=== PATIENT | female | born 1960 | race Caucasian/White ===

== ENCOUNTER 2017-04-16 18:48 | Emergency (ER) | payer BC, OTHER ==
[2017-04-16 19:06] VITALS: TEMP 97.7; BMI 23.8
--- NOTE | 2017-04-16 19:09 | PDOC ---
Rapid Medical Evaluation Time Seen by Provider: 04/16/17 18:49 Medical Evaluation: 04/16/17 19:05 I have performed a brief in-person evaluation of this patient. o The patient presents with a chief complaint of: Lower abdominal pain, vomiting, diarrhea today o Pertinent physical exam findings: Generalized abdominal discomfort. Started at 12 pm today as cramping. Then vomited and several episodes of diarrhea. No rebound, no back pain, denies urinary symptoms. o I have ordered the following: UA, C&S, cbc, cmp, amylase, lipase. o The patient will proceed to the ED for further evaluation.
[2017-04-16 19:24] LABS: BASOPHIL 0.7 % (0-2.0); EOSINOPHIL 0.1 % (0-4.5); MCH 27.7 pg (25.7-33.7); MEAN CELL VOLUME 83.9 fl (80-96); MEAN PLT VOLUME 8.3 fl (7.5-11.1); NEUTROPHILS 81.2 % (42.8-82.8); PLATELET COUNT 328 K/MM3 (134-434); WHITE BLOOD COUNT 14.8 K/mm3 (4.0-10.0)
[2017-04-16 19:31] LABS: URINE APPEARANCE CLEAR; URINE BILIRUBIN NEGATIVE (NEGATIVE); URINE BLOOD NEGATIVE (NEGATIVE); URINE COLOR YELLOW; URINE GLUCOSE (UA) NEGATIVE (NEGATIVE); URINE KETONE 1+ (NEGATIVE); URINE LEUK ESTERASE NEGATIVE (NEGATIVE); URINE NITRITE NEGATIVE (NEGATIVE); URINE PROTEIN NEGATIVE (NEGATIVE); URINE UROBILINOGEN NEGATIVE E.U./dl (0.2-1.0)
[2017-04-16 19:48] LABS: AMYLASE 92 U/L (25-115); ANION GAP 10 (8-16); BILIRUBIN,TOTAL 0.5 mg/dL (0.2-1.0); CALCIUM 9.3 mg/dL (8.5-10.1); CO2 26 mmol/L (21-32); COCKROFT - GAULT 73.9585; CREATININE 0.8 mg/dL (0.55-1.02); GLUCOSE,RANDOM 123 mg/dL (74-106); SGOT/AST 25 U/L (15-37); SGPT/ALT 25 U/L (12-78); TOT PROT 7.5 g/dl (6.4-8.2)
[2017-04-16 19:49] LABS: ALK PHOS 116 U/L (45-117)
[2017-04-16] MEDS ORDERED: SODIUM CHLORIDE 1,000 ML IV STA (20:20)
[2017-04-16] MEDS ORDERED: ONDANSETRON 4 MG/2 ML VIAL IVPUSH ONE (20:20)
[2017-04-16] MEDS ORDERED: morphine CARPU-JECT 4 MG/1 ML DISP.SYRIN IVPUSH ONE (20:20)
--- NOTE | 2017-04-16 20:27 | PDOC ---
History of Present Illness - General Chief Complaint: Pain, Acute Stated Complaint: VOMITING/DIARRHEA Time Seen by Provider: 04/16/17 18:49 History Source: Patient Exam Limitations: No Limitations - History of Present Illness Travel History: No Initial Comments: 04/16/17 20:22 56yo Female patient with no significant past medical history presents to ED c/o lower abdominal pain w/ associated n/v/d x 1 bloody stool. Patient denies any anticoagulation use. Last Meal: 8am this morning. LNMP: Menopausal x 5 years. PCP- Dr. Ricks Endocrine- Dr. Parker Timing/Duration: reports: getting worse Quality: reports: moderate Abdominal Pain Onset Location: reports: RLQ, LLQ Pain Radiation: reports: no radiation Activities at Onset: reports: none Treatment Prior to Arrive: worse with: analgesics, antacids, cold pack, heat, laxative, enema, other Aggravating Factors: worse with: None, Defecation, Eating, Emotional upset, Exertion, [place], Movement, Voiding, Change in position Alleviating Factors: worse with: None, Belching, Shallow Breathing, Defecation, Eating, Holding Breath, Passing Gas, Change in Position, Rest, Voiding, Vomiting Past History - Travel Traveled outside of the country in the last 30 days: No Close contact w/someone who was outside of country & ill: No - Past Medical History Allergies/Adverse Reactions: Allergies Allergy/AdvReac Type Severity Reaction Status Date / Time No Known Allergies Allergy Verified 04/16/17 19:06 Home Medications: Ambulatory Orders Ciprofloxacin [Cipro (Restricted To Id)] 500 mg PO BID #28 tablet 04/16/17 Metronidazole [Flagyl -] 500 mg PO BID #28 tablet 04/16/17 Thyroid Disease: Yes (HYPER) - Psycho/Social/Smoking Cessation Hx Suicidal Ideation: No Smoking History: Never smoked Hx Alcohol Use: No Drug/Substance Use Hx: No Abd/GI Specific PMHX - Complaint Specific PMHX Colitis: No Diverticulitis: No Gall Bladder Disease: No GERD: No Hepatitis: No Irritable Bowel Synd (IBS): No Pancreatitis: No GI Ulcer Disease: No Review of Systems - Review of Systems Able to Perform ROS?: Yes Is the patient limited [place] proficient: No Constitutional: No: Chills, Fever Respiratory: No: Cough, Shortness of Breath, Wheezing Cardiac (ROS): No: Chest Pain, Lightheadedness, Palpitations, Syncope, Chest Tightness ABD/GI: Yes: Blood Streaked Bowels, Diarrhea, Nausea, Vomiting, Abdominal cramping. No: Constipated, Poor Appetite, Poor Fluid Intake, Rectal Bleeding : No: Dysuria, Frequency, Flank Pain, Hematuria, Pain Musculoskeletal: No: Back Pain Integumentary: No: Bruising, Erythema, Rash, Sweating Neurological: No: Headache, Seizure, Tingling, Tremors, Ataxia, Dizziness All Other Systems: Reviewed and Negative *Physical Exam - Vital Signs Last Vital Signs Temp Pulse Resp BP Pulse Ox 97.7 F 96 H 18 164/101 97 04/16/17 19:03 04/16/17 19:03 04/16/17 19:03 04/16/17 19:03 04/16/17 19:03 - Physical Exam General Appearance: Yes: Nourished, Appropriately Dressed, Mild Distress. No: Apparent Distress, Moderate Distress, Severe Distress Neck: positive: Trachea midline, Supple. negative: Normal Thyroid, Stridor, Lymphadenopathy (R), Lymphadenopathy (L) Respiratory/Chest: positive: Lungs Clear, Normal Breath Sounds. negative: Chest Tender, Respiratory Distress, Accessory Muscle Use, Labored Respiration, Rapid RR, Rhonchi, Stridor, Wheezing Cardiovascular: positive: Regular Rhythm, Regular Rate Gastrointestinal/Abdominal: positive: Tender, Soft, Increased Bowel Sounds, Guarding, Tenderness (Lower pelvis region). negative: Distended, Rebound Musculoskeletal: positive: Normal Inspection. negative: CVA Tenderness Extremity: positive: Normal Capillary Refill, Normal Inspection, Normal Range of Motion. negative: Pedal Edema, Swelling, Calf Tenderness, Erythema, Inflammation Integumentary: positive: Normal Color, Dry, Warm. negative: Moist, Hives, Rash , Swelling, Bruising Neurologic: positive: icu registered nurse II-XII NML intact, Fully Oriented, Alert, Normal Mood/ Affect, Normal Response, Motor Strength / ED Treatment Course - LABORATORY CBC & Chemistry Diagram: 04/16/17 19:15 04/16/17 19:15 - ADDITIONAL ORDERS Additional order review: Laboratory Results 04/16/17 04/16/17 19:15 19:15 Sodium 136 Potassium 4.5 Chloride 100 Carbon Dioxide 26 Anion Gap 10 BUN 12 Creatinine 0.8 Creat Clearance w eGFR > 60 Random Glucose 123 H Calcium 9.3 Total Bilirubin 0.5 AST 25 ALT 25 Alkaline Phosphatase 116 Total Protein 7.5 Albumin 4.0 Total Amylase 92 Lipase 107 Urine Color Yellow Urine Appearance Clear Urine pH 7.0 Urine Protein Negative Urine Glucose (UA) Negative Urine Ketones 1+ H Urine Blood Negative Urine Nitrite Negative Urine Bilirubin Negative Urine Urobilinogen Negative Ur Leukocyte Esterase Negative 04/16/17 19:15 RBC 5.16 MCV 83.9 MCHC 33.0 RDW 12.0 MPV 8.3 Neutrophils % 81.2 Lymphocytes % 12.1 Monocytes % 5.9 Eosinophils % 0.1 Basophils % 0.7 - RADIOLOGY Radiology Studies Ordered: Category Date Time Status ABDOMEN & PELVIS CT WITH CONTR [CT] Stat CT Scan 04/16/17 20:20 Ordered *DC/Admit/Observation/Transfer Diagnosis at time of Disposition: Colitis - Discharge Dispostion Disposition: HOME Condition at time of disposition: Improved Admit: No - Prescriptions Prescriptions: Ciprofloxacin [Cipro (Restricted To Id)] 500 mg PO BID #28 tablet Metronidazole [Flagyl -] 500 mg PO BID #28 tablet - Referrals Referrals: Tfif Ricks [Primary Care Provider] - Teresa Sherman MD [Staff Physician] - - Patient Instructions Printed Discharge Instructions: DI for Colitis Additional Instructions: FOLLOW UP WITH YOUR PRIMARY CARE PROVIDER AND DR. SHERMAN THIS WEEK FOR FURTHER EVALUATION. CALL TO SCHEDULE APPOINTMENT. TAKE MEDICATIONS PRESCRIBED. TYLENOL FOR PAIN NEEDED. RETURN IF SYMPTOMS WORSEN OR ANY CONCERNS FOR FURTHER EVALUATION. Print Language: HONDURAN - Post Discharge Activity Work/School Note: Back to Work
--- NOTE | 2017-04-16 20:32 | PDOC ---
*Physical Exam - Vital Signs Last Vital Signs Temp Pulse Resp BP Pulse Ox 97.7 F 96 H 18 164/101 97 04/16/17 19:03 04/16/17 19:03 04/16/17 19:03 04/16/17 19:03 04/16/17 19:03 ED Treatment Course - LABORATORY CBC & Chemistry Diagram: 04/16/17 19:15 04/16/17 19:15 - ADDITIONAL ORDERS Additional order review: Laboratory Results 04/16/17 04/16/17 19:15 19:15 Sodium 136 Potassium 4.5 Chloride 100 Carbon Dioxide 26 Anion Gap 10 BUN 12 Creatinine 0.8 Creat Clearance w eGFR > 60 Random Glucose 123 H Calcium 9.3 Total Bilirubin 0.5 AST 25 ALT 25 Alkaline Phosphatase 116 Total Protein 7.5 Albumin 4.0 Total Amylase 92 Lipase 107 Urine Color Yellow Urine Appearance Clear Urine pH 7.0 Urine Protein Negative Urine Glucose (UA) Negative Urine Ketones 1+ H Urine Blood Negative Urine Nitrite Negative Urine Bilirubin Negative Urine Urobilinogen Negative Ur Leukocyte Esterase Negative 04/16/17 19:15 RBC 5.16 MCV 83.9 MCHC 33.0 RDW 12.0 MPV 8.3 Neutrophils % 81.2 Lymphocytes % 12.1 Monocytes % 5.9 Eosinophils % 0.1 Basophils % 0.7 Medical Decision Making - Medical Decision Making 04/16/17 20:31 agree with care from PATT Klein *DC/Admit/Observation/Transfer Diagnosis at time of Disposition: Colitis - Discharge Dispostion Disposition: HOME Condition at time of disposition: Improved - Prescriptions Prescriptions: Ciprofloxacin [Cipro (Restricted To Id)] 500 mg PO BID #28 tablet Metronidazole [Flagyl -] 500 mg PO BID #28 tablet - Referrals Referrals: Teresa Sherman MD [Staff Physician] - Tiff Ricks [Primary Care Provider] - - Patient Instructions Printed Discharge Instructions: DI for Colitis Additional Instructions: FOLLOW UP WITH YOUR PRIMARY CARE PROVIDER AND DR. SHERMAN THIS WEEK FOR FURTHER EVALUATION. CALL TO SCHEDULE APPOINTMENT. TAKE MEDICATIONS PRESCRIBED. TYLENOL FOR PAIN NEEDED. RETURN IF SYMPTOMS WORSEN OR ANY CONCERNS FOR FURTHER EVALUATION. Print Language: [place] - Post Discharge Activity Work/School Note: Back to Work
[2017-04-16] MEDS ORDERED: morphine CARPU-JECT 4 MG/1 ML DISP.SYRIN ONE (20:33)
[2017-04-16] MEDS ORDERED: ONDANSETRON 4 MG/2 ML VIAL ONE (20:33)
[2017-04-16] MEDS ORDERED: metroNIDAZOLE 500 MG TABLET PO ONE (23:34)
[2017-04-16] MEDS ORDERED: LEVOFLOXACIN 500 MG TABLET (FP) PO ONE (23:49)
[2017-04-16] MEDS ORDERED: LEVOFLOXACIN 500 MG TABLET (FP) ONE (23:52)
[2017-04-16] MEDS ORDERED: metroNIDAZOLE 250 MG TABLET ONE (23:52)
[2017-04-17 00:19] VITALS: BP 140/86; PULSE 78
[2017-04-17] MEDS ORDERED: LEVOFLOXACIN 750 MG TABLET PO SCH (10:00)
== END 2017-04-17 | disposition home or self-care (01) ==
LOC: JER 18:48
PROC: 3E033NZ Introduction of Analgesics, Hypnotics, Sedatives into Peripheral Vein, Percutaneous Approach (ICD-10-PCS; principal; 2017-04-16)
PROC: 3E033GC Introduction of Other Therapeutic Substance into Peripheral Vein, Percutaneous Approach (ICD-10-PCS; 2017-04-16)
PROC: 3E0337Z Introduction of Electrolytic and Water Balance Substance into Peripheral Vein, Percutaneous Approach (ICD-10-PCS; 2017-04-16)
DX: K52.9 Noninfective gastroenteritis and colitis, unspecified (principal); E05.90 Thyrotoxicosis, unspecified without thyrotoxic crisis or storm
CPT/HCPCS: 36415; 74177-TC; 80053; 81003; 82150; 83690; 85025; 87086; 99282-25

== ENCOUNTER 2017-06-01 13:20 | Observation (INO) | payer BC, OTHER ==
[2017-06-01 13:41] VITALS: BMI 23.8
[2017-06-01 14:30] LABS: BASOPHIL 0.6 % (0-2.0); MCH 28.9 pg (25.7-33.7); MCHC 34.5 g/dl (32.0-36.0); MEAN CELL VOLUME 83.8 fl (80-96); MEAN PLT VOLUME 8.2 fl (7.5-11.1); NEUTROPHILS 84.6 % (42.8-82.8); PLATELET COUNT 330 K/MM3 (134-434); RDW 12.3 % (11.6-15.6); WHITE BLOOD COUNT 10.5 K/mm3 (4.0-10.0)
[2017-06-01 14:32] LABS: URINE APPEARANCE CLEAR; URINE BILIRUBIN NEGATIVE (NEGATIVE); URINE BLOOD 1+ (NEGATIVE); URINE COLOR COLORLESS; URINE GLUCOSE (UA) NEGATIVE (NEGATIVE); URINE KETONE NEGATIVE (NEGATIVE); URINE LEUK ESTERASE NEGATIVE (NEGATIVE); URINE NITRITE NEGATIVE (NEGATIVE); URINE PROTEIN NEGATIVE (NEGATIVE); URINE UROBILINOGEN NEGATIVE mg/dL (0.2-1.0)
[2017-06-01 14:33] LABS: URINE MARIJUANA THC NEGATIVE ng/ml (CUTOFF=50)
--- NOTE | 2017-06-01 14:36 | PDOC ---
History of Present Illness - General Chief Complaint: Altered Mental Status Stated Complaint: ANXIETY Time Seen by Provider: 06/01/17 13:53 History Source: Patient, Family - History of Present Illness Timing/Duration: other (this am) Associated Symptoms: reports: headaches. denies: chest pain, cough, diaphoresis , fever/chills, nausea/vomiting, seizure, shortness of breath, weakness Past History - Past Medical History Allergies/Adverse Reactions: Allergies Allergy/AdvReac Type Severity Reaction Status Date / Time No Known Allergies Allergy Verified 06/01/17 13:41 Home Medications: Ambulatory Orders NK [No Known Home Medication] 06/01/17 Thyroid Disease: Yes (HYPER) - Psycho/Social/Smoking Cessation Hx Anxiety: No Suicidal Ideation: No Smoking History: Never smoked Hx Alcohol Use: No Drug/Substance Use Hx: No Substance Use Type: None Review of Systems - Review of Systems Constitutional: No: Chills, Fever HEENTM: No: Blurred Vision Respiratory: No: Cough, Shortness of Breath Cardiac (ROS): No: Chest Pain ABD/GI: No: Constipated, Diarrhea, Nausea, Vomiting, Abdominal cramping : No: Burning, Dysuria Neurological: Yes: Headache. No: Weakness, Ataxia, Dizziness *Physical Exam - Vital Signs Last Vital Signs Temp Pulse Resp BP Pulse Ox 97.8 F 115 H 20 178/107 98 06/01/17 13:35 06/01/17 13:35 06/01/17 13:35 06/01/17 13:35 06/01/17 13:35 - Physical Exam Comments: 06/01/17 14:53 appears anxious in ED General Appearance: Yes: Appropriately Dressed HEENT: positive: Normal Voice Neck: positive: Supple Respiratory/Chest: positive: Lungs Clear, Normal Breath Sounds. negative: Respiratory Distress Cardiovascular: positive: Regular Rate, S1, S2 Gastrointestinal/Abdominal: positive: Soft. negative: Tender Musculoskeletal: negative: CVA Tenderness Integumentary: positive: Dry, Warm Neurologic: positive: Alert, Motor Strength 5/5, Finger to Nose (alert and oriented to place and people, delayed to time or unable to answer correctly, appears to have difficulty remembering events that just occured in ED (for example, appears to not recognize me 10 minutes after I spoke to her or where she placed her bag in ED)). negative: Facial Droop Heart Score/ECG Review - ECG Intrepretation Comment:: 06/01/17 15:26 sinus tach to 101, unremarkable ekg otherwise ED Treatment Course - LABORATORY CBC & Chemistry Diagram: 06/01/17 14:07 06/01/17 14:07 - RADIOLOGY Radiology Studies Ordered: Category Date Time Status HEAD CT WITHOUT CONTRAST [CT] Stat CT Scan 06/01/17 14:06 Ordered CHEST X-RAY PORTABLE* [RAD] Stat Radiology 06/01/17 14:05 Ordered Medical Decision Making - Medical Decision Making 06/01/17 14:28 56-year-old female, with no known past medical history per family, brought in by family for altered mental status. As per sister, patient called her this morning complaining that she has been having "memory issues" this a.m. Sister states that family, including patient, went on a vacation 2 weeks ago to [place] and that today, patient states she remembers travel, but does not remember that one of her sisters was present on vacation. 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 As per family, there has been no prior similar episode. Patient denies excessive alcohol use or illicit drug use. Denies any hallucinations at this time. Denies any recent stressful activities. Does report vague occipital headache but denies dizziness , visual changes, focal weakness, CP, SOB, abd pain, change in BM or dysuria. See exam ? Transient global amnesia (TGA) Fits criteria as appears to have mostly anterograde amnesia (some retrograde as well) but alert, lucid, self aware and maintains cognitive function No e/o psychosis and no focal neuro deficits on exam -will r/o other etiology, i.e stroke (may need MRI), illicit drug use, infxn, etc -most likely need admission for observation until symptoms resolves (w/ TGA can last 1-10 hrs) 06/01/17 14:55 06/01/17 14:55 06/01/17 16:[address] unremarkable. Case d/w hospitalist and pt admitted to observation *DC/Admit/Observation/Transfer Diagnosis at time of Disposition: Altered mental status Qualifiers: Altered mental status type: unspecified Qualified Code(s): R41.82 - Altered mental status, unspecified - Discharge Dispostion Condition at time of disposition: Fair Admit: Yes
[2017-06-01 14:42] LABS: ALBUMIN 3.8 g/dl (3.4-5.0); ANION GAP 11 (8-16); BILIRUBIN,TOTAL 0.4 mg/dL (0.2-1.0); CALCIUM 8.8 mg/dL (8.5-10.1); CO2 24 mmol/L (21-32); CREATININE 0.6 mg/dL (0.55-1.02); GLUCOSE,RANDOM 117 mg/dL (74-106); SGOT/AST 31 U/L (15-37); SGPT/ALT 37 U/L (12-78); TOT PROT 7.1 g/dl (6.4-8.2)
[2017-06-01 14:43] LABS: ALK PHOS 114 U/L (45-117); CPK 101 IU/L (26-192)
[2017-06-01 14:45] LABS: TROPONIN I < 0.02 ng/ml (0.00-0.05)
--- NOTE | 2017-06-01 17:27 | HP ---
CHIEF COMPLAINT: memory loss PCP: Dr. Radha Henley HISTORY OF PRESENT ILLNESS: 56 y/o F brought to ED by sisters because at 11 am she called them and was very anxious stating that she had lost her memory. This was very unusual for her, so they brought her to the ED. The patient states she cannot remember making the phone call, nor does she recall a trip to the [place] ([place], [place], [place] ) 2 weeks ago. Pt also admits to having had dry mouth recently, especially since being in the hospital. She has been drinking lots of water and urinating frequently. The patient noted that she was told previously by her doctor that she had "high thyroid" and that she should have surgery for it but she declined surgery. She was given some medication to control her thyroid level, but stopped taking it several weeks ago. The patient was very anxious about her malady during the interview. Pt admits to urinary frequency, heat intolerance, vertigo for 6 months, and some constipation. Pt denies headache, fever, chills, nausea, vomiting, diarrhea, dysuria, abdominal pain. ER course was notable for: (1) labs, (2) head CT neg, CXR neg (3) HTN 178/110, which resolved before meds were administered Recent Travel: [place] trip 2 [place] ago PAST MEDICAL HISTORY: thyroid disease PAST SURGICAL HISTORY: hemorrhoidectomy Social History: Smoking:denies Alcohol:denies Drugs: denies Family History: mother with vertio Allergies No Known Allergies Allergy (Verified 06/01/17 13:41) HOME MEDICATIONS: Home Medications Medication Instructions Recorded NK [No Known Home Medication] 06/01/17 REVIEW OF SYSTEMS CONSTITUTIONAL: heat intolerance Absent: fever, chills, diaphoresis, generalized weakness, malaise, loss of appetite, weight change HEENT: Absent: rhinorrhea, nasal congestion, throat pain, throat swelling, difficulty swallowing, mouth swelling, ear pain, eye pain, visual changes CARDIOVASCULAR: Absent: chest pain, syncope, palpitations, irregular heart rate, lightheadedness , peripheral edema RESPIRATORY: Absent: cough, shortness of breath, dyspnea with exertion, orthopnea, wheezing, stridor, hemoptysis GASTROINTESTINAL: Absent: abdominal pain, abdominal distension, nausea, vomiting, diarrhea, constipation, melena, hematochezia GENITOURINARY: frequency associated with increased water intake Absent: dysuria, , urgency, hesitancy, hematuria, flank pain, genital pain MUSCULOSKELETAL: Absent: myalgia, arthralgia, joint swelling, back pain, neck pain SKIN: Absent: rash, itching, pallor HEMATOLOGIC/IMMUNOLOGIC: Absent: easy bleeding, easy bruising, lymphadenopathy, frequent infections ENDOCRINE: Absent: unexplained weight gain, unexplained weight loss, heat intolerance, cold intolerance NEUROLOGIC: Absent: headache, focal weakness or paresthesias, dizziness, unsteady gait, seizure, mental status changes, bladder or bowel incontinence PSYCHIATRIC: anxiety Absent: , depression, suicidal or homicidal ideation, hallucinations. PHYSICAL EXAMINATION GENERAL: Awake, alert, and fully oriented, in no acute distress. HEAD: Normal with no signs of trauma. EYES: Pupils equal, round and reactive to light, extraocular movements intact, sclera anicteric, conjunctiva clear. No lid lag. EARS, NOSE, THROAT: oropharynx clear without exudates. Moist mucous membranes. NECK: Normal range of motion, supple without lymphadenopathy, JVD, or masses. No thyromegally detected LUNGS: Breath sounds equal, clear to auscultation bilaterally. No wheezes, and no crackles. No accessory muscle use. HEART: Regular rate and rhythm, normal S1 and S2 without murmur, rub or gallop. ABDOMEN: Soft, nontender, not distended, normoactive bowel sounds, no guarding, no rebound, no masses. No hepatomegaly or splenomegaly. MUSCULOSKELETAL: Normal range of motion at all joints. No bony deformities or tenderness. No CVA tenderness. UPPER EXTREMITIES: 2+ pulses, warm, well-perfused. No cyanosis. No clubbing. No peripheral edema. LOWER EXTREMITIES: 2+ pulses, warm, well-perfused. No calf tenderness. No peripheral edema. NEUROLOGICAL: Cranial nerves II-XII intact. Normal speech. Normal gait. Strength 5/5 throughout. Sensation intact throughout. PSYCHIATRIC: Cooperative. Good eye contact. Appropriate mood and affect. SKIN: Warm, dry, normal turgor, no rashes or lesions noted, normal capillary refill. ASSESSMENT/PLAN: #Amnesia -Etiology unkown: CVA/TIA vs transient global amnesia, toxic, seizure/complex migraine -noncon brain MRI -Neuro checks -TSH, B12, RPR -Thiamine supplament #r/o Hyperthyroid -TSH #Hypertensive Urgency -BP178/107, HR 115 -resolved spontaneously. possibly was 2/2 anxiety #FEN -not on fluid -lytes wnl -protonix #PPx -DVT: heparin SubQ #Dispo: Admit to Obs Pharmacy: [facility] Visit type - Emergency Visit Emergency Visit: Yes ED Registration Date: 06/01/17 Care time: The patient presented to the Emergency Department on the above date and was hospitalized for further evaluation of their emergent condition. - New Patient This patient is new to me today: Yes Date on this admission: 06/03/17 - Critical Care Critical Care patient: No
[2017-06-01] MEDS ORDERED: LABETALOL HCL 100 MG TABLET (FP) PO ONE (17:35)
--- NOTE | 2017-06-01 18:42 | PN ---
Teaching Attending Note Name of Resident: Kris Gonzales ATTENDING PHYSICIAN STATEMENT I saw and evaluated the patient. I reviewed the resident's note and discussed the case with the resident. I agree with the resident's findings and plan as documented. SUBJECTIVE: CC: memory loss. HPI: pt called sister this am , as she had problem remembering thing. She recently came back from a trip [place], and was doing fine. pt deos not remember her phone call to her sister or how she got here. She denies any fever or chills, denies any weakness/numbness/tingling. has discomfort ( pressure ) in posterior head. had no visual changes, swallowing difficulty, or dizziness. she wa sbrought to ER. was diagnosed recently with " elevated thyroid " and was prescribed a medicine which she did not take yet due to her travel. IN ER : CT head , cxray unremarkable and labs were unremarkable OBJECTIVE: anxious . Awake and alert. knows place, month , year , ( not date ) , age , , does not know ( president ) . does not remember some details about her trip . remembered the three objects immediately and after 3, 5, 10 min . Neuro : EOMI, round equal pupils, reactive to light , no facial droop, nl facial sensation . Tongue and uvula at mid line. no nystagmus . strength 5/5 in upper and lower ext proximally and distally sensation to light touch NL. reflexes 2+ knee jerk and biceps B/l Nose to finger NL CV: RRR, NOMRG Lungs: CTAB Ext : no edema or tremor . Abd : soft, NT, ND , NL BS ASSESSMENT AND PLAN: 56 y/o lady with h/o recent diagnosis of thyroid disorder ( possibly hyperthyroidism ) , who presented due to memory loss 1- Acute onset memory loss. Likely due to transient global amnesia as the onset is sudden, with retrograde amnesia nd also has some retrograde amnesia. Of course , can't R/o concussion , although does not remember a fall or head trauma TIA/Stroke in DDx. Neuro exam is NL though There is no evidence of infection ( photophobia, neck rigidity, fever , ...etc) Urine tox screen neg. - It seems like her amnesia is improving. Which supports the diagnosis of TGA ( still has the memory gap, which might persist) - check MRI brain to r/o Stroke - check B12, TSH, RPR. - give one dose of IV thiamine 100 mg - Neuro consult Dr. Ernandez 2- HTN urgency: BP elevated in ER. Could be due to her anxiety and hyperthyroidism - give 100 mg of labetalol po , repeat BP. - hold off chronic HTN meds for now . 3- Thyroid disorder: probably has hyperthyroidism. - check TSH - will confirm the medication she was prescribed 4- Due to dry mouth and increased thirst. Will check A1c 5- DVT px
[2017-06-01] MEDS ORDERED: THIAMINE HCL 200 MG/2 ML VIAL IVPB ONE (18:51)
[2017-06-01] MEDS ORDERED: ACETAMINOPHEN 325 MG TABLET (FP) PO ONE (22:32)
[2017-06-01] MEDS: HEPARIN NA (PORCINE) 5,000 UNITS/ML 1ML VIAL SQ SCH ×2 (22:37→22:40)
[2017-06-02 07:47] LABS: BASOPHIL 0.5 % (0-2.0); MCH 28.7 pg (25.7-33.7); MCHC 34.7 g/dl (32.0-36.0); MEAN CELL VOLUME 82.8 fl (80-96); MEAN PLT VOLUME 8.3 fl (7.5-11.1); NEUTROPHILS 44.7 % (42.8-82.8); PLATELET COUNT 304 K/MM3 (134-434); RDW 12.5 % (11.6-15.6); WHITE BLOOD COUNT 6.9 K/mm3 (4.0-10.0)
[2017-06-02 07:59] LABS: INR 1.08 (0.82-1.09); PROTHROMBIN TIME (PATIENT) 11.9 SEC (9.98-11.88)
[2017-06-02 08:14] LABS: ALBUMIN 3.5 g/dl (3.4-5.0); CALCIUM 8.8 mg/dL (8.5-10.1)
[2017-06-02 08:39] LABS: THYROID STIMULATING HORMONE < 0.01 uIU/ml (0.358-3.74)
[2017-06-02 08:45] LABS: ALK PHOS 102 U/L (45-117); ANION GAP 8 (8-16); BILIRUBIN,TOTAL 0.6 mg/dL (0.2-1.0); CO2 27 mmol/L (21-32); CREATININE 0.7 mg/dL (0.55-1.02); GLUCOSE,RANDOM 93 mg/dL (74-106); MAGNESIUM 2.1 mg/dL (1.8-2.4); PHOSPHOROUS 3.9 mg/dL (2.5-4.9); SGOT/AST 25 U/L (15-37); SGPT/ALT 33 U/L (12-78); TOT PROT 6.7 g/dl (6.4-8.2)
[2017-06-02] MEDS: HEPARIN NA (PORCINE) 5,000 UNITS/ML 1ML VIAL SQ SCH ×2 (09:36→22:28)
--- NOTE | 2017-06-02 16:16 | CON.NEURO ---
Consult Consult Specialty:: NEUROLOGY-DARCY CESPEDES Reason for Consultation:: Amnesia - History of Present Illness Chief Complaint: Amnesia History of Present Illness: 56 y/o F brought to ED by sisters yesterday because at 11 am she called them and was very anxious stating that she had lost her memory. They brought her to the ED. The patient states she cannot remember making the phone call, nor does she recall a trip to [place] ([place], [place], [place] 2 weeks ago. Pt also admits to having had dry mouth recently, especially since being in the hospital. She had been drinking lots of water and urinating frequently. The patient noted that she was told previously by her doctor that she had "high thyroid" and that she should have surgery for it but she declined surgery. She was given some medication to control her thyroid level, but stopped taking it several weeks ago. The patient was very anxious about her malady during the interview. Pt admits to urinary frequency, heat intolerance, vertigo for 6 months, and some constipation. Pt denies headache, fever, chills, nausea, vomiting, diarrhea, dysuria, abdominal pain. Pt. reports she has a "memory gap" starting at some point on Saturday until early this morning, that she is unable to recall how she got to hospital. She now recall details of her trip to [place]. 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 3) Reports 5 years ago she had 1 or 2 episodes of left eye piercing pain - she saw a neurologist, MRI brain with contrast is reported without abn.) ...LMP Comment: 2011 ...: No - Alcohol/Substance Use Hx Alcohol Use: No - Smoking History Smoking history: Never smoked Home Medications - Allergies Allergies/Adverse Reactions: Allergies Allergy/AdvReac Type Severity Reaction Status Date / Time No Known Allergies Allergy Verified 06/01/17 13:41 - Home Medications Home Medications: Ambulatory Orders Methimazole 5 mg PO DAILY #30 tablet 06/02/17 Review of Systems - Review of Systems Neurological: reports: Headache (Vertigo) Physical Exam-Neuro Vital Signs: Vital Signs Temperature 98.4 F 06/02/17 15:24 Pulse Rate 85 06/02/17 15:24 Respiratory Rate 18 06/02/17 15:24 Blood Pressure 134/78 06/02/17 15:24 O2 Sat by Pulse Oximetry (%) 98 06/02/17 08:49 Labs: CBC, BMP 06/02/17 06:20 06/02/17 06:20 INR, PTT INR 1.08 (0.82-1.09) 06/02/17 06:20 - Neuro Exam Level Of Consciousness: Yes: Alert, Oriented to Person, Oriented to Place, Oriented to Time Dominant Hand: Right Mini Mental Exam: Couldrecal 3/3 objects in 1 and 5 mns, STM intact. Intact serial 7s, digit span. DTR's: 2+ Left Bicep, 2+ Right Bicep, 2+ Left Tricep, 2+ Right Tricep, 2+ Left Brachioradialis, 2+ Right Brachioradialis, 2+ Left Achilles, 2+ Right Achilles Babinski: Absent Response to light touch: Normal Response to pain prick: Normal Motor Strength: 5/5: Left Arm, Right Arm, Left Leg, Right Leg NIH Stroke Scale - Total Score NIH Stroke Scale Score: 0 Imaging - Results Cat Scan: Report Reviewed (Reported without acute abn.) MRI: Report Reviewed (Reported with acute changes.) Assessment/Plan Pt. with an episode of Transient Global Amnesia, this usually lasts for less than 24 hours but in this lady appears to have lasted longer. Her mental status examination including immediate recall are now completely normal as is her brain imaging. A&P: 1) I have reassured the family and patient that this is a self limited condition , explained possible mechanisms and treatment plan. 2) Would obtain an MRA of the brainm to visualize particulary the post. circulation-the etiology of TGA is presumably vasospasm in vertebro-basilar system. 3) Place on ASA 81mg daily 4) Lipid profile 5) If MRA without abn. pt. may be discharged home, she will call my office for f /u. Thank you, Luke Lara MD [phone]
--- NOTE | 2017-06-02 16:35 | DS ---
Physical Examination Vital Signs: Vital Signs Temperature 98.4 F 06/02/17 15:24 Pulse Rate 85 06/02/17 15:24 Respiratory Rate 18 06/02/17 15:24 Blood Pressure 134/78 06/02/17 15:24 O2 Sat by Pulse Oximetry (%) 98 06/02/17 08:49 Findings/Remarks: no pain, feels better , still does not remember the period form calling her sister to coming to hospital . denies numbness , tingling , or weaknes Exam: AAOx3 . remembers all the details about her trip . before calling sister and after coming to ER remembered the three objects immediately and after 5 min . Neuro : EOMI, round equal pupils, reactive to light , no facial droop, nl facial sensation . Tongue and uvula at mid line. no nystagmus . strength 5/5 in upper and lower ext proximally and distally sensation to light touch NL. reflexes 2+ knee jerk and biceps B/l Nose to finger NL. gait NL CV: RRR, NO MRG Lungs: CTAB Ext : no edema or tremor . Labs: CBC, BMP 06/02/17 06:20 06/02/17 06:20 Discharge Summary Reason For Visit: ALTERED MENTAL STATUS Current Active Problems Transient global amnesia Hospital Course: Dc Diagnoses: 1- Transient global Amnesia 2- HTN urgency 3- untreated Hyperthyroidism 56 y/o lady with h/o recent diagnosis of hyperthyroidism , who presented due to memory loss . W/u in the ER included blood work and CT of head which was nL. initially at presentation she had elevated bP ( likely as she was anxious ) , but this has resolved after 100 mg of po labetalol. her neuro exam was completely NL except for anterograde amensia and some retrograde amensia with a memory gap ( calling sister to arriving in ER ) . atthe time of my initial evaluation the patinet memory had improved , and this AM her memory is nl except fro the afore mentioned memory gap. MRI done showed no acute abnormalities . She was thought to have TGA . Unknown trigger. she was given IV thiamine on admission .toxicology and CBC, BMP were nL , B12 NL she was recently diagnosed with hyperthyroidism, but did not start her meds yet. Pharmacy called today and confirmed methimazole was prescribed in . she was advised to start her methimazole as her TSH was low and to follow with her traveling repair accountant . dispo : dc home condition: improved f/u: neuro , endocrine , and PCP Dr. Cobb [phone] Condition: Improved - Instructions Diet, Activity, Other Instructions: please follow with your primary doctor within few days please follow with Dr. Ernandez , from neurology please take methimazol daily for your thyroid. Do not delay . And follow with your traveling repair accountant Please report any fever , chills, severe KATE , change in vision , or weakness to your doctor follow up on your blood pressure , with your primary doctor to make marily eyou don't have hypertension Good luck Referrals: Matheus Ernandez DO [Staff Physician] - Disposition: HOME - Home Medications Comprehensive Discharge Medication List: Ambulatory Orders Methimazole 5 mg PO DAILY #30 tablet 06/02/17
[2017-06-02] MEDS: ASPIRIN COATED 81 MG TABLET.EC PO SCH (16:49)
--- NOTE | 2017-06-02 17:52 | EKG ---
Test Reason : Blood Pressure : / mmHG Vent. Rate : 101 BPM Atrial Rate : 101 BPM P-R Int : 142 ms QRS Dur : 082 ms QT Int : 342 ms P-R-T Axes : 034 -10 030 degrees QTc Int : 443 ms SINUS TACHYCARDIA LEFT AXIS DEVIATION BORDERLINE ECG NO PREVIOUS ECGS AVAILABLE CLINICAL CORRELATION IS RECOMMENDED Confirmed by AYAAN ROBERTS MD ([id number]) on 06/02/2017 5:52:07 PM Referred By: Confirmed By:AYAAN ROBERTS MD
[2017-06-03 07:35] LABS: CHOLESTEROL 190 mg/dL (50-200); LDL CHOLESTEROL (ONLY SJRH) 124 mg/dL (5-100)
[2017-06-03] MEDS ORDERED: PT OWN MED DRAWER 7, Y5N ONE (09:45)
[2017-06-03] MEDS ORDERED: METHIMAZOLE 5 MG TABLET (FP) PO SCH (10:00)
[2017-06-03] MEDS: ASPIRIN COATED 81 MG TABLET.EC PO SCH (10:08)
[2017-06-03] MEDS: HEPARIN NA (PORCINE) 5,000 UNITS/ML 1ML VIAL SQ SCH (10:11)
--- NOTE | 2017-06-03 13:59 | DS ---
Physical Exam: SUBJECTIVE: Patient seen and examined at bedside. Pt has no complaints at this time. Was able to remember 3/3 words at 5 and 10 min. Denies headache, cp, sob, abd pain, nausea, vomiting, diarrhea, dysuria, fever, chills. OBJECTIVE: Vital Signs Period Temp Pulse Resp BP Sys/Robbins Pulse Ox Last 24 Hr 97.7 F-98.4 F 63-85 18-18 122-142/73-102 98-98 PHYSICAL EXAM GENERAL: The patient is awake, alert, and fully oriented, in no acute distress. HEAD: Normal with no signs of trauma. EYES: PERRL, extraocular movements intact, sclera anicteric, conjunctiva clear. ENT: oropharynx clear without exudates, moist mucous membranes. NECK: Trachea midline, full range of motion, supple. LUNGS: Breath sounds equal, clear to auscultation bilaterally, no wheezes, no crackles, no accessory muscle use. HEART: Regular rate and rhythm, S1, S2 without murmur, rub or gallop. ABDOMEN: Soft, nontender, nondistended, normoactive bowel sounds, no guarding, no rebound, no hepatosplenomegaly, no masses. EXTREMITIES: 2+ pulses, warm, well-perfused, no edema. NEUROLOGICAL: Cranial nerves II through XII grossly intact. Normal speech, gait not observed. PSYCH: Normal mood, normal affect. remembers 3/3 at 5 and 10 min. SKIN: Warm, dry, normal turgor, no rashes or lesions noted. LABS Laboratory Results - last 24 hr 06/03/17 05:35 Triglycerides 126 Cholesterol 190 Total LDL Cholesterol 124 H HDL Cholesterol 46 HOSPITAL COURSE: Date of Admission:06/01/17 Date of Discharge: 06/03/17 1- Transient global Amnesia 2- HTN urgency 3- untreated Hyperthyroidism 56 y/o lady with h/o recent diagnosis of hyperthyroidism , who presented due to memory loss . W/u in the ER included blood work and CT of head which was nL. initially at presentation she had elevated bP ( likely as she was anxious ) , but this has resolved after 100 mg of po labetalol. her neuro exam was completely NL except for anterograde amensia and some retrograde amensia with a memory gap ( calling sister to arriving in ER ) . atthe time of my initial evaluation the patinet memory had improved , and this AM her memory is nl except fro the afore mentioned memory gap. MRI and MRA of the brain done showed no acute abnormalities . She was thought to have TGA . Unknown trigger. she was given IV thiamine on admission .toxicology and CBC, BMP were nL , B12 NL she was recently diagnosed with hyperthyroidism, but did not start her meds yet. Pharmacy called today and confirmed methimazole was prescribed in . she was advised to start her methimazole as her TSH was low and to follow with her semaphore operator . dispo : dc home condition: improved f/u: neuro (Dr. Ernandez), endocrine (Dr. Parker) , and PCP (Dr. Cobb [phone]) Minutes to complete discharge: 45 Discharge Summary Reason For Visit: ALTERED MENTAL STATUS Current Active Problems Altered mental status (Acute) Condition: Improved - Instructions Diet, Activity, Other Instructions: -Please follow with your primary doctor (Dr. Cobb) within few days -Please follow with Dr. Ernandez , from neurology in 1 week. -Please follow with your semaphore operator (Dr. Harrison Parker) in 1 week -Please take methimazol daily for your thyroid. Do not delay. -Please report any fever , chills, severe headache, change in vision, or weakness to your doctor -Please follow up on your blood pressure with your primary doctor to make sure you don't have hypertension Good luck If you develop any new symptoms or if your symptoms get worse, please return to the emergency department. Referrals: Matheus Ernandez DO [Staff Physician] - 1 Week Harrison Parker MD [Staff Physician] - 1 Week Disposition: HOME - Home Medications Comprehensive Discharge Medication List: Ambulatory Orders Aspirin [Aspirin EC] 81 mg PO DAILY #1 tablet. 06/02/17 Methimazole 5 mg PO DAILY #30 tablet 06/02/17 This patient is new to me today: Yes Date on this admission: 06/04/17 Emergency Visit: No Critical Care patient: No - Discharge Referral Referred to [facility] Med [facility] No
--- NOTE | 2017-06-03 15:13 | PN ---
Teaching Attending Note Name of Resident: Kris Gonzales ATTENDING PHYSICIAN STATEMENT I saw and evaluated the patient. I reviewed the resident's note and discussed the case with the resident. I agree with the resident's findings and plan as documented. SUBJECTIVE: feels better , feels clear OBJECTIVE: AAOx3 . still has memory gap Neuro : EOMI, round equal pupils, reactive to light , no facial droop, nl facial sensation . Tongue and uvula at mid line. no nystagmus . strength 5/5 in upper and lower ext proximally and distally sensation to light touch NL. reflexes 2+ knee jerk and biceps B/l Nose to finger NL. gait NL CV: RRR, NO MRG Lungs: CTAB Ext : no edema or tremor . A/P " 1- Transient global Amnesia 2- HTN urgency 3- untreated Hyperthyroidism plan : - MRA NL. - dc on ASA - f/u with neuro - f/u BP as outpt -cont methimazol dc home
[2017-06-03 15:32] VITALS: BP 135/77; PULSE 80; TEMP 98.5
== END 2017-06-03 16:16 | disposition home or self-care (01) ==
LOC: JER 13:20 → JERBED 16:01 → J4S 22:07
PROVIDERS: ADMIT Internal Medicine; ATTEND Internal Medicine
PROC: 3E033GC Introduction of Other Therapeutic Substance into Peripheral Vein, Percutaneous Approach (ICD-10-PCS; principal; 2017-06-01)
DX: G45.4 Transient global amnesia (principal); E05.90 Thyrotoxicosis, unspecified without thyrotoxic crisis or storm; I16.0 Hypertensive urgency
CPT/HCPCS: 36415; 70450-TC; 70544-TC; 70551-TC; 71010-TC; 80053; 80061; 80307; 81003; 81015; 82607; 83690; 83721; 83735; 84100; 84443; 84484; 85025; 85610; 86593; 93005; 93010; 99284-25; G0378; J1644